=== PATIENT | male | born 1980 | race Caucasian/White ===

== ENCOUNTER → 2018-03-01 | Outpatient (CLI) | payer OTHER ==
[2018-03-01 13:04] LABS: BASO # 0.1 10^3/uL (0.0-0.2); BASO % 0.6 % (0.0-1.0); EOS # 0.2 10^3/uL (0.0-0.50); EOS % 2.8 % (0.0-3.0); HEMATOCRIT 44.6 % (42.0-52.0); HEMOGLOBIN 14.8 g/dl (13.5-17.5); IMMATURE GRANULOCYTE % 0.6 % (0-3.0); LYMPH % 25.1 % (24.0-44.0); MEAN CORPUSCULAR HGB CONC 33.2 g/dl (32.0-36.5); MEAN CORPUSCULAR VOLUME 87.5 fl (80.0-96.0); MONO # 0.6 10^3/uL (0.0-0.8); MONO % 6.9 % (0.0-5.0); NEUTROPHILS # 5.1 10^3/uL (1.8-7.7); PLATELET COUNT, AUTOMATED 274 10^3/uL (150-450); RED CELL DISTRIBUTION WIDTH 13.3 % (11.5-14.5)
[2018-03-01 13:21] LABS: ALBUMIN 4.3 GM/DL (3.2-5.2); ALBUMIN/GLOBULIN RATIO 1.23 (1.00-1.93); ALKALINE PHOSPHATASE 105 U/L (45-117); ALT/SGPT 31 U/L (12-78); ANION GAP 5 MEQ/L (8-16); AST/SGOT 20 U/L (7-37); BILIRUBIN,TOTAL 0.4 MG/DL (0.2-1.0); BLOOD UREA NITROGEN 15 MG/DL (7-18); CARBON DIOXIDE LEVEL 29 MEQ/L (21-32); CHLORIDE LEVEL 106 MEQ/L (98-107); CREATININE FOR GFR 0.95 MG/DL (0.70-1.30); GLOMERULAR FILTRATION RATE > 60.0 (>60); GLUCOSE, FASTING 101 MG/DL (70-100); POTASSIUM SERUM 4.4 MEQ/L (3.5-5.1); SODIUM LEVEL 140 MEQ/L (136-145); TOTAL PROTEIN 7.8 GM/DL (6.4-8.2)
== END ==
LOC: M ADAMS 10:51
DX: K59.00 Constipation, unspecified (principal); R03.0 Elevated blood-pressure reading, without diagnosis of hypertension
CPT/HCPCS: 84443

== ENCOUNTER → 2018-07-04 | Outpatient (REF) | payer OTHER ==
[2018-07-04 13:36] LABS: ERYTHROCYTE SEDIMENTATION RATE 12 mm/hr (0-15)
[2018-07-04 14:22] LABS: ANION GAP 7 MEQ/L (8-16); BLOOD UREA NITROGEN 20 MG/DL (7-18); C REACTIVE PROTEIN QUANTITATIV 1.21 MG/DL (0.00-0.30); CALCIUM LEVEL 9.6 MG/DL (8.5-10.1); CARBON DIOXIDE LEVEL 27 MEQ/L (21-32); CHLORIDE LEVEL 109 MEQ/L (98-107); CHOLESTEROL LEVEL 181 MG/DL (<200); CHOLESTEROL RISK RATIO 3.693 (<5); CREATININE FOR GFR 0.87 MG/DL (0.70-1.30); GLOMERULAR FILTRATION RATE > 60.0 (>60); GLUCOSE, FASTING 107 MG/DL (70-100); HDL CHOLESTEROL 49 MG/DL (>40); LDL CHOLESTEROL 115 MG/DL (<100); NON-HDL-C 132 MG/DL; POTASSIUM SERUM 4.8 MEQ/L (3.5-5.1); SODIUM LEVEL 143 MEQ/L (136-145); TRIGLYCERIDES LEVEL 85 MG/DL (<150)
== END ==
LOC: M SFHCADAM 07:47
DX: Z15.89 Genetic susceptibility to other disease (principal); Z82.49 Family history of ischemic heart disease and other diseases of the circulatory system

== ENCOUNTER → 2018-09-14 | Outpatient (REF) | payer OTHER | LOC: M SFHCPLAZ 08:58 | DX: M45.9 Ankylosing spondylitis of unspecified sites in spine (principal); Z53.9 Procedure and treatment not carried out, unspecified reason ==

== ENCOUNTER → 2018-12-02 | Outpatient (REF) | payer OTHER ==
[2018-12-02 18:10] LABS: BASO # 0.1 10^3/uL (0.0-0.2); BASO % 0.6 % (0.0-1.0); EOS # 0.3 10^3/uL (0.0-0.50); EOS % 3.3 % (0.0-3.0); HEMATOCRIT 43.4 % (42.0-52.0); HEMOGLOBIN 14.2 g/dl (13.5-17.5); LYMPH # 2.7 10^3/uL (1.5-4.5); MEAN CORPUSCULAR HGB CONC 32.7 g/dl (32.0-36.5); MEAN CORPUSCULAR VOLUME 88.8 fl (80.0-96.0); MONO # 0.6 10^3/uL (0.0-0.8); MONO % 7.3 % (0.0-5.0); NEUTROPHILS # 4.2 10^3/uL (1.8-7.7); NEUTROPHILS % 53.4 % (36.0-66.0); PLATELET COUNT, AUTOMATED 289 10^3/uL (150-450); RED BLOOD COUNT 4.89 10^6/uL (4.30-6.10); WHITE BLOOD COUNT 7.8 10^3/uL (4.0-10.0)
[2018-12-02 18:31] LABS: ALT/SGPT 35 U/L (12-78); BILIRUBIN,TOTAL 0.2 MG/DL (0.2-1.0); CALCIUM LEVEL 9.6 MG/DL (8.5-10.1); CARBON DIOXIDE LEVEL 25 MEQ/L (21-32); CHLORIDE LEVEL 107 MEQ/L (98-107); CREATININE FOR GFR 0.78 MG/DL (0.70-1.30); GLOMERULAR FILTRATION RATE > 60.0 (>60); GLUCOSE, FASTING 86 MG/DL (70-100); POTASSIUM SERUM 5.1 MEQ/L (3.5-5.1); RHEUMATOID FACTOR QUANT < 10.0 IU/ML (<15.0); SODIUM LEVEL 141 MEQ/L (136-145); TOTAL PROTEIN 7.3 GM/DL (6.4-8.2)
[2018-12-02 18:34] LABS: BLOOD UREA NITROGEN 15 MG/DL (7-18)
[2018-12-02 18:35] LABS: ALBUMIN 4.1 GM/DL (3.2-5.2)
[2018-12-02 18:41] LABS: ERYTHROCYTE SEDIMENTATION RATE 13 mm/hr (0-15)
[2018-12-05 00:07] LABS: ANA (HEP2) Negative (.); CYCLIC CITRULLINATED PEPTIDE 7 units (0-19)
== END ==
LOC: M SFHCPLAZ 10:13 → M LABDRWAD 10:19 → M SFHCADAM 10:20
PROVIDERS: ATTEND Internal Medicine Rheumatology
DX: M45.9 Ankylosing spondylitis of unspecified sites in spine (principal)

== ENCOUNTER → 2018-12-02 | Outpatient (CLI) | payer OTHER ==
--- NOTE | 2018-12-02 12:32 | REP ---
THORACIC SPINE THREE VIEWS: 12/02/2018. CLINICAL HISTORY: Ankylosing spondylitis. COMPARISON: 04/15/2016, 02/07/2014. FINDINGS: There is bridging syndesmophyte along the lateral greater than medial margins of the T12-L1 level. Smaller syndesmophytes laterally at T11-12. I see small spurs without fusion, but no flowing osteophytes are identified along the ventral surface of the spine. There is no compression deformity or destructive lesion. No focal abnormality. The cervical thoracic junction is unremarkable. The pedicles, spinous processes, transverse processes, and posterior rib articulations along with medial clavicles are intact IMPRESSION: 1. Some bridging syndesmophytes only at T12-L1 and T11-12. A few small marginal osteophytes elsewhere but, in general, no flowing osteophytes along ventral surface of the spine. There is no compression deformity or destructive lesion. Stable examination. Electronically Signed by Barney Neves MD 12/02/2018 06:56 P
--- NOTE | 2018-12-02 12:34 | REP ---
LUMBAR SPINE COMPLETE WITH BENDING X-RAYS: 12/02/2018. TECHNIQUE: Seven views including flexion and extension lateral bending views provided. CLINICAL HISTORY: Ankylosing spondylitis. FINDINGS: AP view shows pedicles, spinous and transverse processes grossly intact. There are bridging syndesmophytes laterally at T12-L1, L1-2, and on the right at L2-3, L3-4. Laterally, there are bridging syndesmophytes at L3-4 on the ventral surface of the spine. Disc space height slightly narrowed at that level. The other disc space heights and all vertebral body heights are intact. There is some hypertrophic facet change at L4-5 and L5-S1, minimally at L3-4. No compression deformity. All of this is stable. The flexion and extension lateral views show very limited range of motion but no instability. IMPRESSION: 1. Some bridging syndesmophytes at the levels described without significant progression and with limited range of motion but no instability. No compression fracture or destructive lesion. Electronically Signed by Barney Neves MD 12/02/2018 06:56 P
--- NOTE | 2018-12-02 12:36 | REP ---
BILATERAL SI JOINT SERIES: 12/02/2018. CLINICAL HISTORY: Ankylosing spondylitis. COMPARISON: 03/01/2010 FINDINGS: AP inlet and outlet views and bilateral oblique projections show bilateral fusion of the SI joints again and unchanged from the previous exam. Sacral ala and foramina appear symmetric otherwise. The lower lumbar facets show sclerosis at L4-5 and L5-S1. Hip joint spaces are symmetric. Iliac wings intact. Pelvic ring preserved. IMPRESSION: 1. Fusion of the bilateral SI joints, unchanged from 2009, consistent with known history of ankylosing spondylitis. No progressive changes. Electronically Signed by Barney Neves MD 12/02/2018 06:56 P
== END ==
LOC: M ADAMS 10:14
PROVIDERS: ATTEND Internal Medicine Rheumatology
DX: M45.9 Ankylosing spondylitis of unspecified sites in spine (principal)

== ENCOUNTER → 2019-07-08 | Outpatient (CLI) | payer OTHER ==
[2019-07-08 09:41] LABS: BASO # 0.1 10^3/uL (0.0-0.2); BASO % 0.7 % (0.0-1.0); EOS # 0.3 10^3/uL (0.0-0.5); EOS % 3.5 % (0.0-3.0); HEMATOCRIT 43.1 % (42.0-52.0); HEMOGLOBIN 14.1 g/dl (13.5-17.5); LYMPH # 1.9 10^3/uL (1.5-5.0); LYMPH % 23.6 % (24.0-44.0); MEAN CORPUSCULAR HEMOGLOBIN 29.3 pg (27.0-33.0); MEAN CORPUSCULAR HGB CONC 32.7 g/dl (32.0-36.5); MEAN CORPUSCULAR VOLUME 89.4 fl (80.0-96.0); MONO # 0.7 10^3/uL (0.0-0.8); MONO % 8.1 % (0.0-5.0); NEUTROPHILS # 5.2 10^3/uL (1.5-8.5); NEUTROPHILS % 63.7 % (36.0-66.0); PLATELET COUNT, AUTOMATED 284 10^3/uL (150-450); RED BLOOD COUNT 4.82 10^6/uL (4.30-6.10); WHITE BLOOD COUNT 8.1 10^3/uL (4.0-10.0)
[2019-07-08 10:02] LABS: ERYTHROCYTE SEDIMENTATION RATE 28 mm/hr (0-15)
[2019-07-08 10:11] LABS: ALBUMIN 3.7 GM/DL (3.2-5.2); ALT/SGPT 31 U/L (12-78); BILIRUBIN,TOTAL 0.3 MG/DL (0.2-1.0); BLOOD UREA NITROGEN 21 MG/DL (7-18); C REACTIVE PROTEIN QUANTITATIV 2.19 MG/DL (0.00-0.30); CARBON DIOXIDE LEVEL 27 MEQ/L (21-32); CHLORIDE LEVEL 108 MEQ/L (98-107); CREATININE FOR GFR 0.81 MG/DL (0.70-1.30); GLOMERULAR FILTRATION RATE > 60.0 (>60); GLUCOSE, FASTING 89 MG/DL (70-100); POTASSIUM SERUM 4.8 MEQ/L (3.5-5.1); SODIUM LEVEL 141 MEQ/L (136-145); TOTAL PROTEIN 7.4 GM/DL (6.4-8.2)
[2019-07-08 10:21] LABS: HEPATITIS B SURFACE ANTIBODY NEGATIVE (POSITIVE)
[2019-07-08 10:31] LABS: HEPATITIS B SURFACE ANTIGEN NEGATIVE (NEGATIVE)
== END ==
LOC: M LAB 08:35
PROVIDERS: ATTEND Internal Medicine Rheumatology
DX: M45.9 Ankylosing spondylitis of unspecified sites in spine (principal)

== ENCOUNTER → 2019-11-13 | Outpatient (REF) | payer OTHER ==
[2019-11-13 18:34] LABS: BASO # 0.1 10^3/uL (0.0-0.2); EOS # 0.4 10^3/uL (0.0-0.5); EOS % 5.1 % (0.0-3.0); HEMATOCRIT 50.8 % (42.0-52.0); HEMOGLOBIN 16.6 g/dl (13.5-17.5); LYMPH # 2.8 10^3/uL (1.5-5.0); LYMPH % 38.4 % (24.0-44.0); MEAN CORPUSCULAR HGB CONC 32.7 g/dl (32.0-36.5); MEAN CORPUSCULAR VOLUME 88.8 fl (80.0-96.0); MONO # 0.6 10^3/uL (0.0-0.8); MONO % 7.7 % (0.0-5.0); NEUTROPHILS # 3.5 10^3/uL (1.5-8.5); NEUTROPHILS % 47.5 % (36.0-66.0); PLATELET COUNT, AUTOMATED 257 10^3/uL (150-450); RED BLOOD COUNT 5.72 10^6/uL (4.30-6.10); WHITE BLOOD COUNT 7.3 10^3/uL (4.0-10.0)
[2019-11-13 18:44] LABS: ALBUMIN 4.6 GM/DL (3.2-5.2); ALT/SGPT 44 U/L (12-78); BILIRUBIN,TOTAL 0.5 MG/DL (0.2-1.0); BLOOD UREA NITROGEN 15 MG/DL (7-18); C REACTIVE PROTEIN QUANTITATIV < 0.30 MG/DL (0.00-0.30); CALCIUM LEVEL 10.4 MG/DL (8.5-10.1); CARBON DIOXIDE LEVEL 27 MEQ/L (21-32); CHLORIDE LEVEL 104 MEQ/L (98-107); CREATININE FOR GFR 0.89 MG/DL (0.70-1.30); GLOMERULAR FILTRATION RATE > 60.0 (>60); GLUCOSE, FASTING 91 MG/DL (70-100); POTASSIUM SERUM 4.5 MEQ/L (3.5-5.1); SODIUM LEVEL 137 MEQ/L (136-145)
[2019-11-13 19:03] LABS: ERYTHROCYTE SEDIMENTATION RATE 1 mm/hr (0-15)
== END ==
LOC: M SFHCRHEU 14:15
PROVIDERS: ATTEND Internal Medicine
DX: M45.7 Ankylosing spondylitis of lumbosacral region (principal)

== ENCOUNTER → 2020-07-16 | Outpatient (CLI) | payer OTHER ==
--- NOTE | 2020-07-22 07:45 | REP ---
LEFT SHOULDER SERIES: 3-VIEWS HISTORY: Shoulder and neck pain. FINDINGS: The left glenohumeral and acromioclavicular joints are normally aligned. Periarticular soft tissues are unremarkable. No erosive change is seen. No soft tissue calcification is observed. The visualized left thoracic structures are unremarkable. IMPRESSION: Negative radiographs of the left shoulder. \ MTDD
--- NOTE | 2020-07-22 07:46 | REP ---
C-SPINE SERIES: 5-VIEWS HISTORY: Shoulder and neck pain. FINDINGS: Lateral view of the cervical spine is compared with the 03/01/2010 prior study. Cervical vertebral body heights are preserved. Disc spaces are maintained and alignment is normal. Prevertebral soft tissues are not thickened or enlarged. Facets are normal aligned. AP and open-mouth odontoid views are unremarkable. Oblique images show no evidence of foraminal impingement or facet malalignment. IMPRESSION: Negative views of the cervical spine. MTDD
== END ==
LOC: M ADAMS 08:00
PROVIDERS: ATTEND Physician Assistant Medical
DX: M25.512 Pain in left shoulder (principal); R20.2 Paresthesia of skin; R20.0 Anesthesia of skin

== ENCOUNTER → 2020-10-12 | Outpatient (REF) | payer OTHER | LOC: M LAB REF 16:40 | PROVIDERS: ATTEND Physician Assistant Medical | DX: Z11.59 Encounter for screening for other viral diseases (principal) ==

== ENCOUNTER → 2020-11-10 | Outpatient (REF) | payer OTHER ==
[~2020-11-10] MED LIST: HUMI40KI SC
[2020-11-10 13:25] LABS: BASO # 0.1 10^3/uL (0.0-0.2); BASO % 0.8 % (0.0-1.0); EOS # 0.1 10^3/uL (0.0-0.5); EOS % 1.6 % (0.0-3.0); HEMATOCRIT 44.3 % (42.0-52.0); HEMOGLOBIN 14.4 g/dl (13.5-17.5); LYMPH # 2.4 10^3/uL (1.5-5.0); LYMPH % 36.8 % (24.0-44.0); MEAN CORPUSCULAR HEMOGLOBIN 28.9 pg (27.0-33.0); MEAN CORPUSCULAR HGB CONC 32.5 g/dl (32.0-36.5); MEAN CORPUSCULAR VOLUME 88.8 fl (80.0-96.0); MONO # 0.6 10^3/uL (0.0-0.8); MONO % 8.6 % (0.0-5.0); NEUTROPHILS # 3.3 10^3/uL (1.5-8.5); PLATELET COUNT, AUTOMATED 264 10^3/uL (150-450); RED BLOOD COUNT 4.99 10^6/uL (4.30-6.10); WHITE BLOOD COUNT 6.4 10^3/uL (4.0-10.0)
[2020-11-10 13:51] LABS: ALT/SGPT 44 U/L (12-78); BILIRUBIN,TOTAL 0.6 MG/DL (0.2-1.0); BLOOD UREA NITROGEN 15 MG/DL (7-18); CALCIUM LEVEL 10.5 MG/DL (8.5-10.1); CARBON DIOXIDE LEVEL 31 MEQ/L (21-32); CHLORIDE LEVEL 106 MEQ/L (98-107); CREATININE FOR GFR 0.91 MG/DL (0.70-1.30); GLOMERULAR FILTRATION RATE > 60.0 (>60); GLUCOSE, FASTING 97 MG/DL (70-100); SODIUM LEVEL 139 MEQ/L (136-145); TOTAL PROTEIN 7.7 GM/DL (6.4-8.2)
== END ==
LOC: M SFHCADAM 11:05
PROVIDERS: ATTEND Physician Assistant
DX: K42.9 Umbilical hernia without obstruction or gangrene (principal)

== ENCOUNTER → 2020-11-10 | Outpatient (CLI) | payer OTHER ==
[~2020-11-10] MED LIST changes: +GASTROGRAFIN SOLUTION 30ML (Q9963) As Ordered ONE; +ISOVUE-370 76% 100ML VIAL As Ordered ONE
--- NOTE | 2020-11-10 15:09 | REP ---
INDICATION: UMBILICAL HERNIA WITHOUT OBSTRUCTION. COMPARISON: None. TECHNIQUE: Helical scanning is acquired and 3 mm axial images re-formatted. Coronal and sagittal MPR images are generated. The CT contrast enhancement dose is 100 mL of intravenous Isovue 370. Oral contrast was also administered. FINDINGS: Digital preliminary laundry worker radiograph is unremarkable. Lung bases are essentially clear. There is no evidence of pleural effusion or upper abdominal ascites. The liver and the spleen are normal in size homogeneous in texture. No adrenal lesion is seen. No abnormality is noted in the gallbladder or the pancreas. The kidneys enhance symmetrically and are morphologically intact. Small and large intestinal bowel loops are normal in the abdomen and pelvis. No obstructive lesion is seen. No bowel mass lesion is observed. Prostate, seminal vesicles and urinary bladder are unremarkable. No bony destructive lesion is seen. There is a small umbilical hernia trans Vanegas a small amount of abdominal fat. No other abdominal wall defect is seen. The umbilical hernia defect measures 18 mm in craniocaudal span by approximately 16 mm right to left. On bone window settings, incidental note is made of ankylosis of the sacroiliac joints bilaterally. This is very suggestive of ankylosing spondylitis. There are indeed syndesmophytes forming at L5-S1 and L3-4. IMPRESSION: Small umbilical hernia as described above trans Vanegas abdominal fat. Otherwise no acute abdominal or pelvic abnormality. Changes consistent with ankylosing spondylitis with fusion of the SI joints. <Electronically signed by Brennen Arvizu > 11/10/20 [id number]
== END ==
LOC: M RAD 12:38
PROVIDERS: ATTEND Physician Assistant
DX: K42.9 Umbilical hernia without obstruction or gangrene (principal)
CPT/HCPCS: 74177; Q9963; Q9967

== ENCOUNTER → 2020-11-29 | Outpatient (CLI) | payer OTHER ==
[~2020-11-29] MED LIST changes: -GASTROGRAFIN SOLUTION 30ML (Q9963) As Ordered ONE; -ISOVUE-370 76% 100ML VIAL As Ordered ONE
== END ==
LOC: M LABSMTC 10:13
PROVIDERS: ATTEND Anesthesiology
DX: Z01.812 Encounter for preprocedural laboratory examination (principal)

== ENCOUNTER 2020-12-04 07:38 | Day surgery (SDC) | payer OTHER ==
[~2020-12-04] VITALS: Ht 188 cm; Wt 101.7 kg
[~2020-12-04 07:38] MED LIST changes: +LIDOCAINE 1% MDV 20ML VIAL SQ PRN; +LR 1,000 ML IV ONE; +ceFAZolin SOD 2 GM in IV 1 EA IV ONE
[2020-12-04] MEDS ORDERED: ROCURONIUM BROMIDE 50 MG/5 ML VIAL As Ordered ONE (08:11)
[2020-12-04] MEDS ORDERED: ONDANSETRON 4MG/2ML VIAL As Ordered ONE (08:11)
[2020-12-04] MEDS ORDERED: propofoL 200 MG/20 ML VIAL As Ordered ONE (08:11)
[2020-12-04] MEDS ORDERED: LIDOCAINE 2% 100MG/5ML SDV (FOR ANES.) As Ordered ONE (08:11)
[2020-12-04] MEDS ORDERED: MIDAZOLAM INJ 2MG/2ML VIAL (J2250 PER 1MG) As Ordered ONE (08:11)
[2020-12-04] MEDS ORDERED: fentaNYL 100 MCG/2 ML INJECTION (J3010) As Ordered ONE ×2 (08:11→09:55)
[2020-12-04] MEDS ORDERED: dexameTHASONE 4 MG/ML 1ML VIAL (J1100 PER 1MG) As Ordered ONE (08:12)
[2020-12-04] MEDS ORDERED: BUPIVACAINE/EPIN 0.25% 30 ML VIAL As Ordered ONE (09:27)
[2020-12-04] MEDS ORDERED: ACETAMINOPHEN 1000MG 100ML IV BTL (OFIRMEV) (J0131 PER 10MG) As Ordered ONE (09:55)
[2020-12-04] MEDS ORDERED: SUGAMMADEX SODIUM 500 MG/5 ML VIAL (BRIDION) As Ordered ONE (10:08)
[2020-12-04] MEDS ORDERED: KETOROLAC 60MG 2ML VIAL As Ordered ONE (10:11)
[2020-12-04] MEDS ORDERED: NORCO, ANEXSIA 5/325MG TABLET (HYDROcodone/ACETAMINOPHEN) PO PRN (11:00)
[2020-12-04] MEDS ORDERED: fentaNYL 100 MCG/2 ML INJECTION (J3010) IV PRN (11:00)
[2020-12-04] MEDS ORDERED: oxyCODONE 5MG TAB PO PRN (11:00)
[2020-12-04] MEDS ORDERED: ONDANSETRON 4MG/2ML VIAL IV PRN (11:00)
[2020-12-04 13:20] VITALS: BP 147/87
--- NOTE | 2020-12-04 15:46 | RO ---
OPERATIVE NOTE DATE OF OPERATION: 12/04/2020 PREOPERATIVE DIAGNOSIS: Umbilical hernia. POSTOPERATIVE DIAGNOSIS: Umbilical hernia. PROCEDURE: Robotic repair of umbilical hernia. SURGEON: Dr. Henley CHEMICAL PROCESS EQUIPMENT OPERATOR: Luann Corley ANESTHESIA: General. ESTIMATED BLOOD LOSS: 5. COMPLICATIONS: None. INDICATIONS FOR PROCEDURE: Patient is a 40-year-old male who presents with complaints of pain and a lump in his umbilicus, found to have an umbilical hernia Recommendation was to proceed with robotic repair. Risks and benefits of the procedure, not limited to, but include bleeding, infection, hernia formation, hernia recurrence, damage to surrounding structures, need for further surgery were discussed in detail with the patient. Informed consent was obtained and procedure planned. DESCRIPTION OF PROCEDURE: Patient was brought back to operating room #7. After sufficient sedation, the abdomen was sterilely prepped and draped. Next, a time-out was done to confirm proper patient and proper procedure. Following that, an 8 mm incision was made in the left upper quadrant, Veress needle inserted, and the abdomen was insufflated to 15 mm of mercury. Veress needle was then removed, and 8 mm Optiview port was used to gain access to the abdomen. Once the abdomen was entered, two more ports were placed, one in the midline above the umbilicus and one in the right upper quadrant. Robot was then docked to the ports. Once the robot was docked, the abdomen was examined. The preperitoneal space was entered just above the umbilicus with a horizontal incision. Preperitoneal space was dissected free using a combination of blunt and sharp dissection. The hernia sac was identified at the umbilicus. It was dissected free until it was completely reduced. Once it was completely reduced, the fascia was closed with a running 0 Stratafix suture. Next, ProGrip mesh was cut to 3 x 4 cm oval and placed over top of the suture-closed defect. The peritoneum was then closed over top of that with a running 2-0 V-Loc. Once that was completed, the needles were removed and the abdomen was desufflated. Skin incisions were closed with 4-0 Vicryl subcuticular sutures. The abdomen was cleaned and dried. Steri-Strips, 4 x 4, and tape were applied, thus ending the procedure.
== END 2020-12-04 13:40 | disposition home or self-care (01) ==
LOC: M SDC 07:38
PROVIDERS: ATTEND Surgery
DX: K42.9 Umbilical hernia without obstruction or gangrene (principal); K21.9 Gastro-esophageal reflux disease without esophagitis; M45.9 Ankylosing spondylitis of unspecified sites in spine; Z87.891 Personal history of nicotine dependence; Z88.2 Allergy status to sulfonamides; Z88.6 Allergy status to analgesic agent
CPT/HCPCS: 49652; C1781; J0131; J0690; J1100; J1885; J2250; J2405; J3010

== ENCOUNTER → 2021-02-20 | Outpatient (CLI) | payer SELFPAY ==
[~2021-02-20] MED LIST changes: -LIDOCAINE 1% MDV 20ML VIAL SQ PRN; -LR 1,000 ML IV ONE; -ceFAZolin SOD 2 GM in IV 1 EA IV ONE
== END ==
LOC: M LABSMTC 09:11
PROVIDERS: ATTEND Pediatrics
DX: Z11.52 Encounter for screening for COVID-19 (principal)

== ENCOUNTER → 2021-05-26 | Outpatient (REF) | payer OTHER ==
[2021-05-26 13:18] LABS: BASO # 0.1 10^3/uL (0.0-0.2); BASO % 0.9 % (0.0-1.0); EOS # 0.3 10^3/uL (0.0-0.5); EOS % 4.2 % (0.0-3.0); HEMATOCRIT 46.7 % (42.0-52.0); HEMOGLOBIN 15.9 g/dl (13.5-17.5); LYMPH # 2.6 10^3/uL (1.5-5.0); LYMPH % 41.2 % (24.0-44.0); MEAN CORPUSCULAR HEMOGLOBIN 30.5 pg (27.0-33.0); MEAN CORPUSCULAR VOLUME 89.6 fl (80.0-96.0); MONO # 0.6 10^3/uL (0.0-0.8); MONO % 9.4 % (2.0-8.0); NEUTROPHILS # 2.8 10^3/uL (1.5-8.5); NEUTROPHILS % 44.1 % (36.0-66.0); PLATELET COUNT, AUTOMATED 247 10^3/uL (150-450); RED BLOOD COUNT 5.21 10^6/uL (4.30-6.10); WHITE BLOOD COUNT 6.4 10^3/uL (4.0-10.0)
[2021-05-26 13:52] LABS: ERYTHROCYTE SEDIMENTATION RATE 2 mm/hr (0-15)
[2021-05-26 14:19] LABS: ALBUMIN 4.1 GM/DL (3.2-5.2); ALT/SGPT 41 U/L (12-78); BILIRUBIN,DIRECT 0.1 MG/DL (0.0-0.2); BILIRUBIN,TOTAL 0.5 MG/DL (0.2-1.0); BLOOD UREA NITROGEN 15 MG/DL (7-18); C REACTIVE PROTEIN QUANTITATIV 0.46 MG/DL (0.00-0.30); CALCIUM LEVEL 10.4 MG/DL (8.5-10.1); CARBON DIOXIDE LEVEL 28 MEQ/L (21-32); CHLORIDE LEVEL 107 MEQ/L (98-107); CREATININE FOR GFR 0.91 MG/DL (0.70-1.30); GLOMERULAR FILTRATION RATE > 60.0 (>60); GLUCOSE, FASTING 91 MG/DL (70-100); POTASSIUM SERUM 5.1 MEQ/L (3.5-5.1); SODIUM LEVEL 140 MEQ/L (136-145); TOTAL PROTEIN 7.4 GM/DL (6.4-8.2)
== END ==
LOC: M LABDRWAD 12:23
PROVIDERS: ATTEND Internal Medicine
DX: M45.7 Ankylosing spondylitis of lumbosacral region (principal)

== ENCOUNTER → 2021-11-18 | Outpatient (REF) | payer OTHER ==
[2021-11-18 12:33] LABS: BASO # 0.1 10^3/uL (0.0-0.2); BASO % 0.7 % (0.0-1.0); EOS # 0.3 10^3/uL (0.0-0.5); EOS % 3.9 % (0.0-3.0); HEMATOCRIT 43.2 % (42.0-52.0); HEMOGLOBIN 14.7 g/dl (13.5-17.5); LYMPH # 2.8 10^3/uL (1.5-5.0); LYMPH % 40.1 % (24.0-44.0); MEAN CORPUSCULAR HEMOGLOBIN 30.2 pg (27.0-33.0); MEAN CORPUSCULAR VOLUME 88.9 fl (80.0-96.0); MONO # 0.7 10^3/uL (0.0-0.8); MONO % 9.8 % (2.0-8.0); NEUTROPHILS # 3.1 10^3/uL (1.5-8.5); NEUTROPHILS % 45.2 % (36.0-66.0); PLATELET COUNT, AUTOMATED 247 10^3/uL (150-450); RED BLOOD COUNT 4.86 10^6/uL (4.30-6.10); WHITE BLOOD COUNT 6.9 10^3/uL (4.0-10.0)
[2021-11-18 13:01] LABS: ALBUMIN 4.1 GM/DL (3.2-5.2); ALT/SGPT 50 U/L (12-78); BILIRUBIN,DIRECT 0.1 MG/DL (0.0-0.2); BILIRUBIN,TOTAL 0.5 MG/DL (0.2-1.0); BLOOD UREA NITROGEN 16 MG/DL (7-18); C REACTIVE PROTEIN QUANTITATIV 0.61 MG/DL (0.00-0.30); CARBON DIOXIDE LEVEL 27 MEQ/L (21-32); CHLORIDE LEVEL 108 MEQ/L (98-107); CREATININE FOR GFR 0.97 MG/DL (0.70-1.30); GLOMERULAR FILTRATION RATE > 60.0 (>60); GLUCOSE, FASTING 99 MG/DL (70-100); POTASSIUM SERUM 4.7 MEQ/L (3.5-5.1); SODIUM LEVEL 139 MEQ/L (136-145); TOTAL PROTEIN 7.4 GM/DL (6.4-8.2)
[2021-11-18 13:11] LABS: ERYTHROCYTE SEDIMENTATION RATE 7 mm/hr (0-15)
== END ==
LOC: M SFHCADAM 10:23
PROVIDERS: ATTEND Internal Medicine
DX: M45.7 Ankylosing spondylitis of lumbosacral region (principal)

== ENCOUNTER 2022-12-25 17:42 | Emergency (ER) | payer OTHER ==
[~2022-12-25] VITALS: Ht 198.1 cm; Wt 100.0 kg
[2022-12-25] MEDS ORDERED: NEXI20CA33 PO (17:59)
[2022-12-25 18:13] LABS: BASO # 0.1 10^3/uL (0.0-0.2); BASO % 0.5 % (0.0-1.0); EOS # 0.4 10^3/uL (0.0-0.5); EOS % 3.3 % (0.0-3.0); HEMATOCRIT 45.8 % (42.0-52.0); HEMOGLOBIN 15.6 g/dl (13.5-17.5); LYMPH # 3.9 10^3/uL (1.5-5.0); LYMPH % 30.6 % (24.0-44.0); MEAN CORPUSCULAR HEMOGLOBIN 30.3 pg (27.0-33.0); MEAN CORPUSCULAR HGB CONC 34.1 g/dl (32.0-36.5); MEAN CORPUSCULAR VOLUME 88.9 fl (80.0-96.0); MONO # 0.9 10^3/uL (0.0-0.8); MONO % 7.5 % (2.0-8.0); NEUTROPHILS # 7.3 10^3/uL (1.5-8.5); NEUTROPHILS % 57.9 % (36.0-66.0); PLATELET COUNT, AUTOMATED 293 10^3/uL (150-450); RED BLOOD COUNT 5.15 10^6/uL (4.30-6.10); WHITE BLOOD COUNT 12.6 10^3/uL (4.0-10.0)
[2022-12-25 18:57] LABS: LIPASE 42 U/L (12-53)
[2022-12-25 19:12] LABS: ALBUMIN 4.3 G/DL (3.2-5.2); ALKALINE PHOSPHATASE 101 U/L (46-116); ALT/SGPT 33 U/L (7.0-40); AST/SGOT 33 U/L (<34); BILIRUBIN,DIRECT < 0.1 MG/DL (<0.4); BILIRUBIN,TOTAL 0.4 MG/DL (0.3-1.2); BLOOD UREA NITROGEN 17 MG/DL (9-23); CALCIUM LEVEL 10.4 MG/DL (8.5-10.1); CARBON DIOXIDE LEVEL 26 MMOL/L (20-31); CHLORIDE LEVEL 103 MMOL/L (98-107); CPK CREATINE PHOSPHOKINASE 120 U/L (46-171); CREATININE FOR GFR 0.86 MG/DL (0.70-1.30); FREE T4 1.18 NG/DL (0.89-1.76); GLOMERULAR FILTRATION RATE > 60.0 (>60); GLUCOSE, FASTING 99 MG/DL (60-100); MAGNESIUM LEVEL 2.1 MG/DL (1.8-2.4); MB/CK RELATIVE INDEX 0.83 (< OR =4); SODIUM LEVEL 138 MMOL/L (136-145); THYROID STIMULATING HORMONE 1.969 uIU/ML (0.55-4.78)
[2022-12-25 19:25] LABS: TOTAL PROTEIN 7.9 G/DL (5.7-8.2)
[2022-12-25 19:38] LABS: CK-MB VALUE MASS < 1.0 NG/ML (<3.6)
[2022-12-25 19:40] LABS: CPK CREATINE PHOSPHOKINASE 102 U/L (46-171); MB/CK RELATIVE INDEX 0.98 (< OR =4)
[2022-12-25 20:00] VITALS: BP 149/96
[2022-12-25] MEDS ORDERED: HOLTER MONITOR XX (20:40)
== END 2022-12-25 21:19 | disposition home or self-care (01) ==
LOC: M ED 17:42
DX: R00.2 Palpitations (principal); K21.9 Gastro-esophageal reflux disease without esophagitis; Z88.2 Allergy status to sulfonamides; Z88.6 Allergy status to analgesic agent; Z79.899 Other long term (current) drug therapy

== ENCOUNTER → 2022-12-28 | Outpatient (CLI) | payer OTHER ==
[~2022-12-28] MED LIST changes: +HOLTER MONITOR XX; +NEXI20CA33 PO
== END ==
LOC: M EKG 11:09
PROVIDERS: ATTEND Emergency Medicine
DX: R00.2 Palpitations (principal)

== ENCOUNTER → 2023-09-18 | Outpatient (CLI) | payer OTHER | LOC: M PLAIMG 12:54 | PROVIDERS: ATTEND Student in an Organized Health Care Education/Training Program | DX: M45.9 Ankylosing spondylitis of unspecified sites in spine (principal) ==

== ENCOUNTER 2023-12-14 08:18 | Day surgery (SDC) | payer OTHER ==
[~2023-12-14] VITALS: Ht 188 cm; Wt 103.9 kg
[~2023-12-14 08:18] MED LIST changes: +PANT40TA29 PO
[2023-12-14] MEDS: NS 1,000 ML IV ONE (08:33)
[2023-12-14] MEDS ORDERED: fentaNYL 100 MCG/2 ML INJECTION As Ordered ONE (09:32)
[2023-12-14] MEDS ORDERED: LIDOCAINE 2% 100MG/5ML SDV (FOR ANES.) As Ordered ONE (09:33)
[2023-12-14] MEDS ORDERED: propofoL 500 MG/50 ML VIAL As Ordered ONE (09:33)
[2023-12-14 10:01] VITALS: TEMP 97.5
[2023-12-14 10:24] VITALS: BP 134/76; O2SAT 100
== END 2023-12-14 10:25 | disposition home or self-care (01) ==
LOC: M OPP 08:18
PROVIDERS: ATTEND Internal Medicine Gastroenterology
DX: Z12.11 Encounter for screening for malignant neoplasm of colon (principal); Z12.12 Encounter for screening for malignant neoplasm of rectum; K63.5 Polyp of colon; K64.8 Other hemorrhoids; K21.00 Gastro-esophageal reflux disease with esophagitis, without bleeding; K44.9 Diaphragmatic hernia without obstruction or gangrene; K29.70 Gastritis, unspecified, without bleeding; Z90.49 Acquired absence of other specified parts of digestive tract; M45.9 Ankylosing spondylitis of unspecified sites in spine; Z79.620 Long term (current) use of immunosuppressive biologic; Z79.899 Other long term (current) drug therapy; Z87.891 Personal history of nicotine dependence; Z88.6 Allergy status to analgesic agent
CPT/HCPCS: 45385; 88305; J3010

== ENCOUNTER 2024-03-25 15:28 | Emergency (ER) | payer OTHER ==
[~2024-03-25] VITALS: Ht 188 cm; Wt 106.0 kg
[2024-03-25 15:57] LABS: BASO % 0.4 % (0.0-1.0); EOS # 0.1 10^3/uL (0.0-0.5); EOS % 1.2 % (0.0-3.0); HEMATOCRIT 47.5 % (42.0-52.0); HEMOGLOBIN 16.7 g/dl (13.5-17.5); LYMPH # 2.4 10^3/uL (1.5-5.0); LYMPH % 30.5 % (24.0-44.0); MEAN CORPUSCULAR HEMOGLOBIN 30.9 pg (27.0-33.0); MEAN CORPUSCULAR HGB CONC 35.2 g/dl (32.0-36.5); MONO # 0.6 10^3/uL (0.0-0.8); MONO % 7.7 % (2.0-8.0); NEUTROPHILS # 4.7 10^3/uL (1.5-8.5); NEUTROPHILS % 60.1 % (36.0-66.0); PLATELET COUNT, AUTOMATED 268 10^3/uL (150-450); WHITE BLOOD COUNT 7.8 10^3/uL (4.0-10.0)
[2024-03-25 16:28] LABS: ETHYL ALCOHOL (ETHANOL) < 0.003 % (0.000-0.010)
[2024-03-25 16:30] LABS: BLOOD UREA NITROGEN 15 MG/DL (9-23); CALCIUM LEVEL 10.9 MG/DL (8.5-10.1); CARBON DIOXIDE LEVEL 24 MMOL/L (20-31); CHLORIDE LEVEL 100 MMOL/L (98-107); CK-MB VALUE MASS 2.3 NG/ML (<3.6); CPK CREATINE PHOSPHOKINASE 334 U/L (46-171); CREATININE FOR GFR 1.02 MG/DL (0.70-1.30); GLOMERULAR FILTRATION RATE > 60.0 (>60); GLUCOSE, FASTING 122 MG/DL (60-100); MB/CK RELATIVE INDEX 0.68 (< OR =4); POTASSIUM SERUM 3.9 MMOL/L (3.5-5.1); SODIUM LEVEL 134 MMOL/L (136-145)
[2024-03-25] MEDS ORDERED: ISOVUE-370 76% 100ML VIAL As Ordered ONE (16:38)
[2024-03-25 16:48] LABS: ALBUMIN 4.6 G/DL (3.2-5.2); ALKALINE PHOSPHATASE 92 U/L (46-116); ALT/SGPT 44 U/L (7.0-40); AST/SGOT 29 U/L (<34); BILIRUBIN,DIRECT 0.2 MG/DL (<0.4); BILIRUBIN,TOTAL 0.7 MG/DL (0.3-1.2)
[2024-03-25 17:06] LABS: INR 0.98; PROTHROMBIN TIME 12.7 SECONDS (12.5-14.5)
[2024-03-25 17:18] LABS: CK-MB VALUE MASS 1.7 NG/ML (<3.6)
[2024-03-25 17:19] LABS: MB/CK RELATIVE INDEX 0.55 (< OR =4)
[2024-03-25] MEDS: MULTIVITAMIN -ADULT INJECTION 10 ML, THIAMINE INJection 100 MG, FOLIC ACID 1 MG in NS 1... IV ONE (17:26)
[2024-03-25] MEDS ORDERED: OMEP-173 PO (17:36)
[2024-03-25] MEDS ORDERED: HUMI40IN2 (17:36)
[2024-03-25] MEDS ORDERED: LISI20TA33 PO (17:36)
[2024-03-25 17:41] LABS: BARBITURATES URINE NEGATIVE (NEGATIVE)
[2024-03-25 17:42] LABS: COCAINE METABOLITE URINE NEGATIVE (NEGATIVE)
[2024-03-25 17:43] LABS: AMPHETAMINES LEVEL URINE NEGATIVE (NEGATIVE); BENZODIAZEPINES URINE NEGATIVE (NEGATIVE); CANNABINOIDS URINE NEGATIVE (NEGATIVE); METHADONE URINE NEGATIVE (NEGATIVE); OPIATES URINE NEGATIVE (NEGATIVE); PHENCYCLIDINE URINE NEGATIVE (NEGATIVE)
[2024-03-25] MEDS: ASPIRIN 81MG CHEW TABLET PO ONE (19:55)
[2024-03-25] MEDS: NITROGLYCERIN 2% OINT 1 GM *U/D* PKT TOP ONE (19:56)
[2024-03-25] MEDS: NITROGLYCERIN 0.4MG SUBL TABLET SL PRN (20:30)
[2024-03-25] MEDS ORDERED: HEPARIN SOD (PORCINE) 5000UNITS/ML 1ML VIAL/SYRINGE IV PRN (21:05)
[2024-03-25] MEDS: THIAMINE 100 MG TAB PO SCH (22:12)
[2024-03-25] MEDS ORDERED: SUPECAP14 PO (22:54)
[2024-03-25] MEDS ORDERED: IBUP200T46 PO (22:54)
[2024-03-25] MEDS ORDERED: HOME MED LIST COMPLETE! XX SCH (22:55)
[2024-03-25 22:56] VITALS: BP 154/87
[2024-03-25] MEDS: METOPROLOL SUCC *XL* 25MG TAB (TopROL *XL*) PO ONE (22:56)
[2024-03-25] MEDS: LORazepam 2 MG TAB PO ONE (22:56)
[2024-03-25] MEDS: HEPARIN SOD (PORCINE) 5000UNITS/ML 1ML VIAL/SYRINGE IV ONE (22:58)
[2024-03-25] MEDS: HEPARIN DRIP 25,000 UNITS in IV 1 EA IV SCH (23:00)
[2024-03-25] MEDS: FOLIC ACID 1MG TAB PO ONE (23:01)
[2024-03-26 00:35] VITALS: TEMP 97.8
[2024-03-26 01:00] VITALS: BP 132/88; O2SAT 96
[2024-03-26] MEDS ORDERED: METOPROLOL TART 25 MG TABLET PO SCH (09:00)
== END 2024-03-26 01:13 | disposition short-term general hospital (02) ==
LOC: M ED 15:28
DX: I20.0 Unstable angina (principal); R55 Syncope and collapse; G40.909 Epilepsy, unspecified, not intractable, without status epilepticus; J98.11 Atelectasis; F10.10 Alcohol abuse, uncomplicated; R00.0 Tachycardia, unspecified; K21.9 Gastro-esophageal reflux disease without esophagitis; H20.012 Primary iridocyclitis, left eye; F17.220 Nicotine dependence, chewing tobacco, uncomplicated; F12.10 Cannabis abuse, uncomplicated; Z88.6 Allergy status to analgesic agent; Z79.811 Long term (current) use of aromatase inhibitors; Z79.1 Long term (current) use of non-steroidal anti-inflammatories (NSAID); Z79.899 Other long term (current) drug therapy
CPT/HCPCS: 70450; 71045; 71275; 80047; 80048; 80076; 80307; 82077; 82140; 82550; 82553; 83605; 84484; 85025; 85610; 85730; 93005; 93041; 94760; 96365; 96366; 96375; 99285; J3411; Q9967

== ENCOUNTER → 2024-03-29 | Outpatient (CLI) | payer OTHER ==
[~2024-03-29] MED LIST changes: +HUMI40IN2; +IBUP200T46 PO; +LISI20TA33 PO; +OMEP-173 PO; +SUPECAP14 PO
== END ==
LOC: M OUTALCOH 12:51
PROVIDERS: ATTEND Psychiatry & Neurology Psychiatry
DX: F10.20 Alcohol dependence, uncomplicated (principal)

== ENCOUNTER 2024-04-03 14:47 | Outpatient (RCR) | payer OTHER | END 2024-04-14 | LOC: M OUTALCOH 14:47 | PROVIDERS: ATTEND Psychiatry & Neurology Psychiatry | DX: F10.20 Alcohol dependence, uncomplicated (principal) ==

== ENCOUNTER 2024-12-24 10:03 | Emergency (ER) | payer OTHER ==
[~2024-12-24] VITALS: Ht 188 cm; Wt 88.5 kg
[2024-12-24 10:18] VITALS: TEMP 97.7
[2024-12-24 10:55] LABS: BASO # 0.1 10^3/uL (0.0-0.2); BASO % 0.7 % (0.0-1.0); EOS # 0.3 10^3/uL (0.0-0.5); HEMOGLOBIN 15.5 g/dl (13.5-17.5); LYMPH # 2.7 10^3/uL (1.5-5.0); LYMPH % 38.1 % (24.0-44.0); MEAN CORPUSCULAR HEMOGLOBIN 31.2 pg (27.0-33.0); MEAN CORPUSCULAR HGB CONC 33.7 g/dl (32.0-36.5); MEAN CORPUSCULAR VOLUME 92.6 fl (80.0-96.0); MONO # 0.7 10^3/uL (0.0-0.8); MONO % 9.4 % (2.0-8.0); NEUTROPHILS # 3.4 10^3/uL (1.5-8.5); NEUTROPHILS % 47.7 % (36.0-66.0); PLATELET COUNT, AUTOMATED 284 10^3/uL (150-450); RED BLOOD COUNT 4.97 10^6/uL (4.30-6.10)
[2024-12-24 11:16] LABS: CK-MB VALUE MASS < 1.0 NG/ML (<3.6)
[2024-12-24 11:17] LABS: BLOOD UREA NITROGEN 15 MG/DL (9-23); CALCIUM LEVEL 10.6 MG/DL (8.5-10.1); CARBON DIOXIDE LEVEL 28 MMOL/L (20-31); CHLORIDE LEVEL 104 MMOL/L (98-107); CPK CREATINE PHOSPHOKINASE 207 U/L (46-171); CREATININE FOR GFR 0.96 MG/DL (0.70-1.30); GLOMERULAR FILTRATION RATE > 60.0 (>60); GLUCOSE, FASTING 100 MG/DL (60-100); MB/CK RELATIVE INDEX 0.48 (< OR =4); POTASSIUM SERUM 4.5 MMOL/L (3.5-5.1); SODIUM LEVEL 140 MMOL/L (136-145)
[2024-12-24 11:29] LABS: CK-MB VALUE MASS < 1.0 NG/ML (<3.6)
[2024-12-24 11:31] LABS: CPK CREATINE PHOSPHOKINASE 207 U/L (46-171); MB/CK RELATIVE INDEX 0.48 (< OR =4)
[2024-12-24] MEDS ORDERED: ISOVUE-370 76% 100ML VIAL As Ordered ONE (11:44)
[2024-12-24 11:54] LABS: LIPASE 34 U/L (12-53)
[2024-12-24 11:56] LABS: ALBUMIN 4.2 G/DL (3.2-5.2); ALKALINE PHOSPHATASE 71 U/L (40-129); ALT/SGPT 39 U/L (7.0-40); AST/SGOT 29 U/L (<34); BILIRUBIN,DIRECT 0.2 MG/DL (<0.4); BILIRUBIN,TOTAL 0.6 MG/DL (0.3-1.2); TOTAL PROTEIN 7.7 G/DL (5.7-8.2)
[2024-12-24 11:58] LABS: FREE T4 1.65 NG/DL (0.89-1.76); THYROID STIMULATING HORMONE 1.411 uIU/ML (0.55-4.78)
[2024-12-24 13:09] VITALS: BP 145/93; O2SAT 98
== END 2024-12-24 13:27 | disposition home or self-care (01) ==
LOC: M ED 10:03
DX: R07.9 Chest pain, unspecified (principal); R55 Syncope and collapse; I10 Essential (primary) hypertension; K21.9 Gastro-esophageal reflux disease without esophagitis; M45.0 Ankylosing spondylitis of multiple sites in spine; Z88.8 Allergy status to other drugs, medicaments and biological substances; Z79.1 Long term (current) use of non-steroidal anti-inflammatories (NSAID); Z79.899 Other long term (current) drug therapy
CPT/HCPCS: 36415; 70450; 71045; 71275; 80048; 80076; 82550; 82553; 83690; 84439; 84443; 84484; 85025; 93005; 93041; 94760; 99284; Q9967